=== PATIENT | male | born 1935 | race Hispanic/Latino ===

== ENCOUNTER 2022-05-15 12:18 | Inpatient (IN) | payer MEDICARE ==
[2022-05-15] MEDS ORDERED: FUROSEMIDE 40 MG/4 ML INJ IV ONE (13:16)
[2022-05-15] MEDS ORDERED: ASPIRIN 325 MG TAB PO ONE (13:17)
--- NOTE | 2022-05-15 13:21 | Emergency Department Report ---
HPI - General Chief Complaint: Pain General Time Seen by Provider: 05/15/22 12:48 - HPI HPI: Room 21 The patient is a 6-year-old male present with a chief complaint of diffuse body pain. Patient states for the past month he has had a poor appetite eating very little. Patient states he stopped taking his diuretics approximately 1 week ago and over the past few days he has had occasional shortness of breath. Patient states he is also noticed increased body swelling. Patient states he had an episode of chest pain this morning that lasted an unknown amount of time it was described as pressure-like in nature. Patient admits to nausea but denies vomiting, fever or cough. EMS was called and found the patient hypoxic to 93% on room air. The patient states he is not on home O2. ED Past Medical Hx - Past Medical History Previous Medical History?: Yes Hx Hypertension: Yes Hx Congestive Heart Failure: Yes Additional medical history: Ascites, vertigo - Surgical History Hx Coronary Stent: Yes (LAD) Additional Surgical History: AAA repair, vasectomy - Family History Family history: no significant - Social History Smoking Status: Former Smoker (None x35 years) Substance Use Type: None - Medications Home Medications: Home Medications Medication Instructions Recorded Confirmed Last Taken Type Aspirin EC [Ecotrin] 325 mg PO QDAY 04/28/22 04/28/22 Unknown History AtorvaSTATin 10 mg PO QDAY 04/28/22 04/28/22 Unknown History Ferrous Sulfate [Iron 325 MG] 325 mg PO QDAY 04/28/22 04/28/22 Unknown History Metoprolol [Lopressor TAB] 50 mg PO BID 04/28/22 04/28/22 Unknown History Multivitamin 1 each PO QDAY 04/28/22 04/28/22 Unknown History Omeprazole 20 mg PO QDAY 04/28/22 04/28/22 Unknown History Tamsulosin [Flomax] 0.4 mg PO QDAY 04/28/22 04/28/22 Unknown History lisinopriL [Lisinopril] 20 mg PO QDAY 04/28/22 04/28/22 Unknown History Furosemide [Lasix TAB] 40 mg PO QDAY 30 Days #30 tablet 04/30/22 Unknown Rx Spironolactone [Aldactone] 50 mg PO QDAY 30 Days #30 tablet 04/30/22 Unknown Rx ED Review of Systems ROS: Stated complaint: GENERAL SICKNESS/FULL BODY EDEMA Other details as noted in HPI Constitutional: weakness. denies: fever Eyes: denies: eye pain ENT: denies: throat pain Respiratory: shortness of breath. denies: cough Cardiovascular: chest pain Endocrine: no symptoms reported Gastrointestinal: abdominal pain, nausea. denies: vomiting Genitourinary: denies: dysuria Musculoskeletal: denies: back pain Neurological: denies: headache Physical Exam - Physical Exam Vital Signs: Vital Signs 05/15/22 05/15/22 12:28 12:46 Temperature 98.5 F Pulse Rate 110 H 101 H Respiratory 20 18 Rate Blood Pressure 112/57 125/45 [Left] O2 Sat by Pulse 95 96 Oximetry Physical Exam: GENERAL: The patient is well-developed well-nourished male lying on stretcher appearing fatigued but in no acute distress. [] HEENT: Normocephalic. Atraumatic. Extraocular motions are intact. Patient has moist mucous membranes. NECK: Supple. Trachea midline CHEST/LUNGS: Clear to auscultation. There is no respiratory distress noted. HEART/CARDIOVASCULAR: Regular. There is no tachycardia. There is no gallop rub or murmur. ABDOMEN: Abdomen is soft, nontender. Patient has normal bowel sounds. There is ascites present SKIN: There is no rash. There is 2+ bilateral lower extremity pitting edema. There is no diaphoresis. NEURO: The patient is awake, alert, and oriented. The patient is cooperative. The patient has no focal neurologic deficits. The patient has normal speech. GCS 15 MUSCULOSKELETAL: There is no evidence of acute injury. ED Course Vital Signs 05/15/22 05/15/22 12:28 12:46 Temperature 98.5 F Pulse Rate 110 H 101 H Respiratory 20 18 Rate Blood Pressure 112/57 125/45 [Left] O2 Sat by Pulse 95 96 Oximetry ED Medical Decision Making - Lab Data Result diagrams: 05/15/22 13:36 05/15/22 13:36 Laboratory Tests 05/15/22 05/15/22 05/15/22 13:36 13:36 13:36 WBC 15.6 H RBC 4.10 Hgb 14.4 Hct 43.9 MCV 107 H MCH 35 H MCHC 33 RDW 16.8 H Plt Count 127 L Baso % (Auto) Gas Operations Analyst WBC Morphology PT 17.5 H INR 1.28 H Sodium 131 L Potassium 4.3 Chloride 101.0 Carbon Dioxide 18 L Anion Gap 16 BUN 40 H Creatinine 1.5 H Estimated GFR 44 BUN/Creatinine Ratio 27 Glucose 106 H Calcium 9.4 Total Bilirubin 4.80 H AST 361 H ALT 112 H Alkaline Phosphatase 331 H Ammonia Total Creatine Kinase 1485 H CK-MB (CK-2) 10.5 H CK-MB (CK-2) Rel Index 0.7 Troponin T 0.059 H NT-Pro-B Natriuret Pep 428.2 Total Protein 6.4 Albumin 2.9 L Albumin/Globulin Ratio 0.8 05/15/22 05/15/22 13:36 13:36 WBC RBC Hgb Hct MCV MCH MCHC RDW Plt Count Baso % (Auto) WBC Morphology TNR PT INR Sodium Potassium Chloride Carbon Dioxide Anion Gap BUN Creatinine Estimated GFR BUN/Creatinine Ratio Glucose Calcium Total Bilirubin AST ALT Alkaline Phosphatase Ammonia 46.0 Total Creatine Kinase CK-MB (CK-2) CK-MB (CK-2) Rel Index Troponin T NT-Pro-B Natriuret Pep Total Protein Albumin Albumin/Globulin Ratio - Radiology Data Radiology results: report reviewed (Chest x-ray), image reviewed (Chest x-ray) interpreted by me: Chest x-ray-no definite focal infiltrates, no pneumothorax [facility] [address] [place] [address] XRay Report Signed Patient: AMBAR GUZMAN MR#: [id number] : 1935 Acct:[id number] Age/Sex: 86 / M ADM Date: 05/15/22 Loc: ED Attending Dr: Ordering Physician: DELIA TURCIOS MD Date of Service: 05/15/22 Procedure(s): XR chest 1V ap Accession Number(s): [id number] cc: DELIA TURCIOS MD Fluoro Time In Minutes: CHEST 1 VIEW 05/15/2022 1:44 PM INDICATION / CLINICAL INFORMATION: Shortness of breath and chest pain. COMPARISON: 04/27/22. FINDINGS: SUPPORT DEVICES: None. HEART / MEDIASTINUM: The heart size and pulmonary vasculature are normal. The aorta is normal in caliber. LUNGS / PLEURA: There is minimal scarring in the left lung base. No new pulmonary or pleural abnormality. No pneumothorax. ADDITIONAL FINDINGS: No significant additional findings. IMPRESSION: No acute abnormality or significant change. Signer Name: Omar Hanson MD Signed: 05/15/2022 1:57 PM Workstation Name: [id number] Transcribed By: RT Dictated By: Omar Hanson MD Electronically Authenticated By: Omar Hanson MD Signed Date/Time: 05/15/221356 DD/ 55 TD/TT: - Differential Diagnosis Volume overload, anasarca, CHF exacerbation, ACS, pericarditis Critical care attestation.: If time is entered above; I have spent that time in minutes in the direct care of this critically ill patient, excluding procedure time. ED Disposition Clinical Impression: CHF exacerbation, Chest pain, Peripheral edema, Rhabdomyolysis, Ascites, Cirrh osis Disposition: ADMITTED INPATIENT Is pt being admited?: Yes Does the pt Need Aspirin: Yes Condition: Stable Instructions: Nonspecific Chest Pain, Adult Time of Disposition: 15:57 (Care transferred to hospitalist (Dr. Garcia)) Heart Score - HEART Score History: Moderately suspicious EKG: Non-specific Age: > 65 Risk factors: 1-2 risk factors Troponin: 1-3x normal limit HEART Score: 6 - EKG Read Time Time EKG Completed: 13:37 EKG Read Time: 13:40
--- NOTE | 2022-05-15 14:01 | XRay Report ---
CHEST 1 VIEW 05/15/2022 1:44 PM INDICATION / CLINICAL INFORMATION: Shortness of breath and chest pain. COMPARISON: 04/27/22. FINDINGS: SUPPORT DEVICES: None. HEART / MEDIASTINUM: The heart size and pulmonary vasculature are normal. The aorta is normal in grey mic. LUNGS / PLEURA: There is minimal scarring in the left lung base. No new pulmonary or pleural abnormal ity. No pneumothorax. ADDITIONAL FINDINGS: No significant additional findings. IMPRESSION: No acute abnormality or significant change. Signer Name: Omar Hanson MD Signed: 05/15/2022 1:57 PM Workstation Name: [id number]
[2022-05-15 14:02] LABS: INR 1.28 (0.87-1.13)
[2022-05-15 14:11] LABS: Hematocrit 43.9 % (35.5-45.6); Hemoglobin 14.4 gm/dl (11.8-15.2); Mean Corpuscular HGB Conc 33 % (32-34); Mean Corpuscular Volume 107 fl (84-94); Platelet Count 127 K/mm3 (140-440); Red Cell Distribution Width 16.8 % (13.2-15.2)
[2022-05-15 15:19] LABS: Creatine Kinase MB 10.5 ng/mL (0.0-4.0)
[2022-05-15 15:24] LABS: Albumin 2.9 g/dL (3.9-5); Calcium 9.4 mg/dL (8.4-10.2)
--- NOTE | 2022-05-15 16:03 | History and Physical Report ---
History of Present Illness Chief complaint: My stomach is really tired and I cannot breathe History of present illness: 86 YO Male with Vascular Dementia, Cerebral Atherosclerosis, Obesity, Cirrhosis complicated by Ascites, Diastolic CHF, CAD S/P Stent Placement presents to ED for evaluation. The patient states "my stomach feels tight and I cannot breathe". Patient states he has experienced shortness of breath, and worsening abdominal distention over the past week with worsening symptoms over the past 2 days. EMS was notified and upon arrival the patient was found to be in distress and subsequent transported to [facility] for further care and evaluation of the aforementioned symptoms. The patient was seen and evaluated in the emergency department. All lab and imaging studies reviewed. Patient was found to have a pulse oximetry of 89% on room air which is consistent with acute hypoxemic respiratory failure. The patient was also found to have large volume tense ascites secondary to cirrhosis, metabolic acidosis, hyponatremia, systemic plantar response syndrome, and acute kidney injury. Patient placed on supplemental oxygen with improvement in symptoms. Patient admitted to medical floor due to increased risk of worsening symptoms and for medical stabilization. Patient has fever, chills, chest pain, palpitation, productive cough, skin rash and recent contact, known exposure to COVID-19. Prior mission on 04/27/2022 reviewed. All medication listed at time of admission have been reconciled. Advanced care planning conducted in ED. Past History Past Medical History: CAD, heart failure, other (See HPI) Past Surgical History: abd. aortic aneurysm repair, Other (Cardiac stent placement) Social history: , Lives alone. denies: smoking, alcohol abuse, prescription drug abuse Family history: hypertension Medications and Allergies Allergies Allergy/AdvReac Type Severity Reaction Status Date / Time clopidogrel bisulfate AdvReac Intermediate RASH,EXCESS Verified 05/15/22 12:34 [From Plavix] BRUISING Home Medications Medication Instructions Recorded Confirmed Last Taken Type Aspirin EC [Ecotrin] 325 mg PO QDAY 04/28/22 04/28/22 Unknown History AtorvaSTATin 10 mg PO QDAY 04/28/22 04/28/22 Unknown History Ferrous Sulfate [Iron 325 MG] 325 mg PO QDAY 04/28/22 04/28/22 Unknown History Metoprolol [Lopressor TAB] 50 mg PO BID 04/28/22 04/28/22 Unknown History Multivitamin 1 each PO QDAY 04/28/22 04/28/22 Unknown History Omeprazole 20 mg PO QDAY 04/28/22 04/28/22 Unknown History Tamsulosin [Flomax] 0.4 mg PO QDAY 04/28/22 04/28/22 Unknown History lisinopriL [Lisinopril] 20 mg PO QDAY 04/28/22 04/28/22 Unknown History Furosemide [Lasix TAB] 40 mg PO QDAY 30 Days #30 tablet 04/30/22 Unknown Rx Spironolactone [Aldactone] 50 mg PO QDAY 30 Days #30 tablet 04/30/22 Unknown Rx Review of Systems Constitutional: no weight loss, no weight gain Ears, nose, mouth and throat: no ear discharge, no tinnitis, no decreased hearing Cardiovascular: shortness of breath, no chest pain, no palpitations, no rapid/irregular heart beat, no edema Respiratory: no cough, no excessive sputum, no shortness of breath Gastrointestinal: other (Abdominal distention), no abdominal pain, no nausea, no vomiting, no diarrhea Genitourinary Male: no hematuria, no flank pain, no discharge, no urinary frequency Rectal: no pain, no incontinence Musculoskeletal: no neck pain, no shooting arm pain, no arm numbness/tingling Integumentary: no rash, no redness, no jaundice Neurological: no head injury, no weakness, no parathesias, no tingling, no seizures, no syncope, no tremors, no lack of coordination Psychiatric: no anxiety, no memory loss, no sleep disturbances, no hypersomnia, no change in appetite, no suicidal ideation Endocrine: no cold intolerance, no heat intolerance, no polydipsia, no nocturia, no excessive sweating, no weight change Hematologic/Lymphatic: no easy bleeding, no lymphedema Allergic/Immunologic: no allergic rhinitis, no wheezing, no anaphylaxis Exam - Constitutional Vitals: Temp Pulse Resp BP Pulse Ox 98.5 F 101 H 18 125/45 96 05/15/22 12:28 05/15/22 12:46 05/15/22 12:46 05/15/22 12:46 05/15/22 12:46 General appearance: Present: mild distress - EENT Eyes: Present: PERRL ENT: hearing intact, clear oral mucosa - Neck Neck: Present: supple, normal ROM - Respiratory Respiratory effort: labored Respiratory: left: diminished, rhonchi - Cardiovascular Heart Sounds: Present: S1 & S2. Absent: rub, click - Extremities Extremity abnormal: edema Peripheral Pulses: within normal limits - Abdominal General gastrointestinal: Present: soft, non-tender, distended, hernia Male genitourinary: Present: normal - Integumentary Integumentary: Present: clear, dry - Musculoskeletal Musculoskeletal: generalized weakness - Psychiatric Psychiatric: appropriate mood/affect, cooperative - Neurologic Neurologic: CNII-XII intact, moves all extremities HEART Score - HEART Score EKG: Non-specific Age: > 65 Risk factors: 1-2 risk factors Troponin: Troponin T 0.059 ng/mL (0.00-0.029) H 05/15/22 13:36 Troponin: 1-3x normal limit Results - Labs CBC & Chem 7: 05/15/22 13:36 05/15/22 13:36 Labs: Abnormal lab results 05/15/22 05/15/22 05/15/22 Range/Units 13:36 13:36 13:36 WBC 15.6 H (4.5-11.0) K/mm3 MCV 107 H (84-94) fl MCH 35 H (28-32) pg RDW 16.8 H (13.2-15.2) % Plt Count 127 L (140-440) K/mm3 PT 17.5 H (12.2-14.9) Sec. INR 1.28 H (0.87-1.13) Sodium 131 L (137-145) mmol/L Carbon Dioxide 18 L (22-30) mmol/L BUN 40 H (9-20) mg/dL Creatinine 1.5 H (0.8-1.3) mg/dL Glucose 106 H (75-100) mg/dL Total Bilirubin 4.80 H (0.1-1.2) mg/dL AST 361 H (5-40) units/L ALT 112 H (7-56) units/L Alkaline Phosphatase 331 H (35-129) units/L Total Creatine Kinase 1485 H (55-170) units/L CK-MB (CK-2) 10.5 H (0.0-4.0) ng/mL Troponin T 0.059 H (0.00-0.029) ng/mL Albumin 2.9 L (3.9-5) g/dL Assessment and Plan - Patient Problems (1) Acute hypoxemic respiratory failure Current Visit: Yes Status: Acute Plan to address problem: Chest x-ray, supplemental oxygen, pulse oximetry, nebulizer therapy, will consider noninvasive positive pressure ventilation as clinically indicated. (2) Cirrhosis of liver with ascites Current Visit: Yes Status: Acute Qualifiers: Hepatic cirrhosis type: unspecified hepatic cirrhosis Qualified Code(s): K74.60 - Unspecified cirrhosis of liver; R18.8 - Other ascites Plan to address problem: Diuresis, supportive care, therapeutic paracentesis conducted in the emergency department, empiric IV antibiotic therapy for SBP prophylaxis (3) SIRS (systemic inflammatory response syndrome) Current Visit: Yes Status: Acute Plan to address problem: CBC, chest x-ray, urinalysis, IV antibiotic therapy, repeat CBC in a.m. (4) Metabolic acidosis Current Visit: Yes Status: Acute Plan to address problem: IV fluid resuscitation therapy, IV bicarbonate therapy, repeat BMP in a.m. (5) Hyponatremia Current Visit: Yes Status: Acute Plan to address problem: IV fluid resuscitation therapy as clinically indicated, BMP, repeat BMP in a.m. (6) Acute kidney injury (GIOVANNA) with acute tubular necrosis (ATN) Current Visit: Yes Status: Acute Plan to address problem: IV fluid resuscitation therapy as clinically indicated, monitor urine output every shift, monitor fluid balance, repeat BMP in a.m. to monitor serum creatinine as well as GFR. (7) Vascular dementia Current Visit: Yes Status: Acute Qualifiers: Dementia behavioral disturbance: without behavioral disturbance Qualified Code(s): F01.50 - Vascular dementia without behavioral disturbance Plan to address problem: Verbal prompting, verbal redirection, benzodiazepine therapy as clinically indicated. (8) Cerebral atherosclerosis Current Visit: Yes Status: Acute Plan to address problem: Risk factor reduction, supportive care. (9) DVT prophylaxis Current Visit: Yes Status: Acute Plan to address problem: SCD to bilateral lower extremities while in bed (10) Advance care planning Current Visit: Yes Status: Acute Plan to address problem: Disease education done, care plan discussed, diagnosis discussed, prognosis discussed, patient is full code. Patient knowledges understanding agreement with care plan, +30 minutes. (11) Preventative health care Current Visit: Yes Status: Acute Plan to address problem: Patient counseled regarding medication compliance, dietary compliance, outpatient follow-up with primary care physician for all age and risk factor appropriate screening test. +30 minutes.
[2022-05-15 16:09] LABS: Chol/HDL Ratio 7.73 %
[2022-05-15] MEDS ORDERED: HYDROmorphone 0.5 MG/0.5 ML INJ IV PRN (16:37)
[2022-05-15] MEDS ORDERED: ONDANSETRON 4 MG/2 ML INJ IV PRN (16:37)
[2022-05-15] MEDS ORDERED: oxyCODONE /ACETAMINOPHEN 5-325MG TAB PO PRN (16:37)
[2022-05-15] MEDS ORDERED: ALBUTEROL 2.5 MG/3 ML NEBU IH PRN (16:37)
[2022-05-15] MEDS ORDERED: ACETAMINOPHEN 325 MG TAB PO PRN (16:37)
[2022-05-15 16:42] LABS: Basophils % (Manual) 0 % (0.0-1.8); Eosinophils % (Manual) 0 % (0.0-4.3); Total Cells Counted 100
[2022-05-15 16:43] LABS: Platelet Estimate Consistent w Auto; Target Cells Few
[2022-05-15] MEDS ORDERED: SODIUM BICARB 8.4% 50 MEQ/50 ML SYRINGE IV ONE (17:40)
--- NOTE | 2022-05-15 17:53 | Procedure Note ---
Date of procedure: 05/15/22 Pre-op diagnosis: Cirrhosis complicated by ascites Post-op diagnosis: same Procedure: Ultrasound-guided paracentesis The patient was prepped and draped in the usual sterile fashion. A timeout was taken with the patient's nurse at bedside to identify the correct patient, the correct procedure, and correct operative site. Ultrasound was utilized to assist ascitic fluid location. Local anesthesia obtained with 1% lidocaine. Disease technique was utilized under ultrasound guidance to insert a paracentesis catheter into the abdominal cavity without difficulty. The seeker needle was subsequently removed. A 50 cc syringe was attached to the vacuum tu yoshi and 5.5 L of serous fluid was removed and 50 cc increments. The paracentesis drain was removed and a bandage placed over the insertion site. Estimated blood loss minimal, complications none, specimens none. Anesthesia: local Surgeon: MARIYA DOE Estimated blood loss: minimal Pathology: none Condition: stable Disposition: floor
[2022-05-15] MEDS: METOPROLOL TARTRATE 50 MG TAB PO SCH (21:55)
--- NOTE | 2022-05-16 08:34 | Progress Note ---
Assessment and Plan Assessment and plan: (1) Acute hypoxemic respiratory failure Current Visit: Yes Status: Acute Plan to address problem: Chest x-ray, supplemental oxygen, pulse oximetry, nebulizer therapy, will consider noninvasive positive pressure ventilation as clinically indicated. 05/16 -Patient was off oxygen, no shortness of breath (2) Cirrhosis of liver with ascites Current Visit: Yes Status: Acute Qualifiers: Hepatic cirrhosis type: unspecified hepatic cirrhosis Qualified Code(s): K74.60 - Unspecified cirrhosis of liver; R18.8 - Other ascites Plan to address problem: Diuresis, supportive care, therapeutic paracentesis conducted in the emergency department, empiric IV antibiotic therapy for SBP prophylaxis 05/16 -Patient's abdominal pain is getting better. -Tolerated paracentesis well. -Patient is scheduled to see GI as an outpatient but he was scheduled to see in july. (3) SIRS (systemic inflammatory response syndrome) Current Visit: Yes Status: Acute Plan to address problem: CBC, chest x-ray, urinalysis, IV antibiotic therapy, repeat CBC in a.m. (4) Metabolic acidosis Current Visit: Yes Status: Acute Plan to address problem: IV fluid resuscitation therapy, IV bicarbonate therapy, repeat BMP in a.m. (5) Hyponatremia Current Visit: Yes Status: Acute Plan to address problem: IV fluid resuscitation therapy as clinically indicated, BMP, repeat BMP in a.m. (6) Acute kidney injury (GIOVANNA) with acute tubular necrosis (ATN) Current Visit: Yes Status: Acute Plan to address problem: IV fluid resuscitation therapy as clinically indicated, monitor urine output every shift, monitor fluid balance, repeat BMP in a.m. to monitor serum creatinine as well as GFR. (7) Vascular dementia Current Visit: Yes Status: Acute Qualifiers: Dementia behavioral disturbance: without behavioral disturbance Qualified Code(s): F01.50 - Vascular dementia without behavioral disturbance Plan to address problem: Verbal prompting, verbal redirection, benzodiazepine therapy as clinically indicated. (8) Cerebral atherosclerosis Current Visit: Yes Status: Acute Plan to address problem: Risk factor reduction, supportive care. (9) DVT prophylaxis Current Visit: Yes Status: Acute Plan to address problem: SCD to bilateral lower extremities while in bed (10) Advance care planning Current Visit: Yes Status: Acute Plan to address problem: Disease education done, care plan discussed, diagnosis discussed, prognosis discussed, patient is full code. Patient knowledges understanding agreement with care plan, +30 minutes. (11) Preventative health care Current Visit: Yes Status: Acute Plan to address problem: Patient counseled regarding medication compliance, dietary compliance, outpatient follow-up with primary care physician for all age and risk factor appropriate screening test. +30 minutes. History Interval history: Patient was seen and evaluated this morning Patient did not have any complaints overnight Hospitalist Physical - Physical exam Narrative exam: Not in cardiopulmonary distress. The patient appeared well nourished and normally developed. Vital signs as documented. Head exam is unremarkable. No scleral icterus . Neck is without jugular venous distension, thyromegaly, or carotid bruits. Lungs are clear to auscultation. Cardiac exam reveals regular rate and Rhythm. Abdominal exam reveals normal bowel sounds, nontender, no organomegaly. Extremities are nonedematous and both femoral and pedal pulses are normal. PATTERN PAINTER: Alert and oriented 3. No focal weakness. - Constitutional Vitals: Temp Pulse Resp BP Pulse Ox 98.2 F 65 18 126/53 98 05/16/22 03:57 05/16/22 03:57 05/16/22 03:57 05/16/22 03:57 05/16/22 03:57 General appearance: Present: mild distress HEART Score - HEART Score EKG: Non-specific Age: > 65 Risk factors: 1-2 risk factors Troponin: Troponin T 0.059 ng/mL (0.00-0.029) H 05/15/22 13:36 Troponin: 1-3x normal limit Results - Labs CBC & Chem 7: 05/15/22 13:36 05/15/22 13:36 Labs: Laboratory Last Values WBC 15.6 K/mm3 (4.5-11.0) H 05/15/22 13:36 RBC 4.10 M/mm3 (3.65-5.03) 05/15/22 13:36 Hgb 14.4 gm/dl (11.8-15.2) 05/15/22 13:36 Hct 43.9 % (35.5-45.6) 05/15/22 13:36 MCV 107 fl (84-94) H 05/15/22 13:36 MCH 35 pg (28-32) H 05/15/22 13:36 MCHC 33 % (32-34) 05/15/22 13:36 RDW 16.8 % (13.2-15.2) H 05/15/22 13:36 Plt Count 127 K/mm3 (140-440) L 05/15/22 13:36 Baso % (Auto) Estimating Manager 05/15/22 13:36 Add Manual Diff Complete 05/15/22 13:36 Total Counted 100 05/15/22 13:36 Seg Neuts % (Manual) 85.0 % (40.0-70.0) H 05/15/22 13:36 Band Neutrophils % 0 % 05/15/22 13:36 Lymphocytes % (Manual) 3.0 % (13.4-35.0) L 05/15/22 13:36 Reactive Lymphs % (Man) 0 % 05/15/22 13:36 Monocytes % (Manual) 12.0 % (0.0-7.3) H 05/15/22 13:36 Eosinophils % (Manual) 0 % (0.0-4.3) 05/15/22 13:36 Basophils % (Manual) 0 % (0.0-1.8) 05/15/22 13:36 Metamyelocytes % 0 % 05/15/22 13:36 Myelocytes % 0 % 05/15/22 13:36 Promyelocytes % 0 % 05/15/22 13:36 Blast Cells % 0 % 05/15/22 13:36 Nucleated RBC % Not Reportable 05/15/22 13:36 Seg Neutrophils # Man 13.3 K/mm3 (1.8-7.7) H 05/15/22 13:36 Band Neutrophils # 0.0 K/mm3 05/15/22 13:36 Lymphocytes # (Manual) 0.5 K/mm3 (1.2-5.4) L 05/15/22 13:36 Abs React Lymphs (Man) 0.0 K/mm3 05/15/22 13:36 Monocytes # (Manual) 1.9 K/mm3 (0.0-0.8) H 05/15/22 13:36 Eosinophils # (Manual) 0.0 K/mm3 (0.0-0.4) 05/15/22 13:36 Basophils # (Manual) 0.0 K/mm3 (0.0-0.1) 05/15/22 13:36 Metamyelocytes # 0.0 K/mm3 05/15/22 13:36 Myelocytes # 0.0 K/mm3 05/15/22 13:36 Promyelocytes # 0.0 K/mm3 05/15/22 13:36 Blast Cells # 0.0 K/mm3 05/15/22 13:36 WBC Morphology Not Reportable 05/15/22 13:36 WBC Morphology TNR 05/15/22 13:36 Hypersegmented Neuts Not Reportable 05/15/22 13:36 Hyposegmented Neuts Not Reportable 05/15/22 13:36 Hypogranular Neuts Not Reportable 05/15/22 13:36 Smudge Cells Not Reportable 05/15/22 13:36 Toxic Granulation Not Reportable 05/15/22 13:36 Toxic Vacuolation Not Reportable 05/15/22 13:36 Dohle Bodies Not Reportable 05/15/22 13:36 Pelger-Huet Anomaly Not Reportable 05/15/22 13:36 Didier Rods Not Reportable 05/15/22 13:36 Platelet Estimate Consistent w auto 05/15/22 13:36 Clumped Platelets Not Reportable 05/15/22 13:36 Plt Clumps, EDTA Not Reportable 05/15/22 13:36 Large Platelets Not Reportable 05/15/22 13:36 Giant Platelets Not Reportable 05/15/22 13:36 Platelet Satelliting Not Reportable 05/15/22 13:36 Plt Morphology Comment Not Reportable 05/15/22 13:36 RBC Morphology Not Reportable 05/15/22 13:36 Dimorphic RBCs Not Reportable 05/15/22 13:36 Polychromasia Not Reportable 05/15/22 13:36 Hypochromasia Not Reportable 05/15/22 13:36 Poikilocytosis Not Reportable 05/15/22 13:36 Anisocytosis Not Reportable 05/15/22 13:36 Microcytosis Not Reportable 05/15/22 13:36 Macrocytosis Not Reportable 05/15/22 13:36 Spherocytes Not Reportable 05/15/22 13:36 Pappenheimer Bodies Not Reportable 05/15/22 13:36 Sickle Cells Not Reportable 05/15/22 13:36 Target Cells Few 05/15/22 13:36 Tear Drop Cells Not Reportable 05/15/22 13:36 Ovalocytes Not Reportable 05/15/22 13:36 Helmet Cells Not Reportable 05/15/22 13:36 Sidhu-Bret Harte Bodies Not Reportable 05/15/22 13:36 Troy Rings Not Reportable 05/15/22 13:36 Dasia Cells Not Reportable 05/15/22 13:36 Bite Cells Not Reportable 05/15/22 13:36 Crenated Cell Not Reportable 05/15/22 13:36 Elliptocytes Not Reportable 05/15/22 13:36 Acanthocytes (Spur) Not Reportable 05/15/22 13:36 Rouleaux Not Reportable 05/15/22 13:36 Hemoglobin C Crystals Not Reportable 05/15/22 13:36 Schistocytes Not Reportable 05/15/22 13:36 Malaria parasites Not Reportable 05/15/22 13:36 Venancio Bodies Not Reportable 05/15/22 13:36 Hem Pathologist Commnt No 05/15/22 13:36 PT 17.5 Sec. (12.2-14.9) H 05/15/22 13:36 INR 1.28 (0.87-1.13) H 05/15/22 13:36 Sodium 131 mmol/L (137-145) L 05/15/22 13:36 Potassium 4.3 mmol/L (3.6-5.0) 05/15/22 13:36 Chloride 101.0 mmol/L (98-107) 05/15/22 13:36 Carbon Dioxide 18 mmol/L (22-30) L 05/15/22 13:36 Anion Gap 16 mmol/L 05/15/22 13:36 BUN 40 mg/dL (9-20) H 05/15/22 13:36 Creatinine 1.5 mg/dL (0.8-1.3) H 05/15/22 13:36 Estimated GFR 44 ml/min 05/15/22 13:36 BUN/Creatinine Ratio 27 % 05/15/22 13:36 Glucose 106 mg/dL (75-100) H 05/15/22 13:36 Calcium 9.4 mg/dL (8.4-10.2) 05/15/22 13:36 Total Bilirubin 4.80 mg/dL (0.1-1.2) H 05/15/22 13:36 AST 361 units/L (5-40) H 05/15/22 13:36 ALT 112 units/L (7-56) H 05/15/22 13:36 Alkaline Phosphatase 331 units/L (35-129) H 05/15/22 13:36 Ammonia 46.0 umol/L (25-60) 05/15/22 13:36 Total Creatine Kinase 1485 units/L (55-170) H 05/15/22 13:36 CK-MB (CK-2) 10.5 ng/mL (0.0-4.0) H 05/15/22 13:36 CK-MB (CK-2) Rel Index 0.7 (0-4) 05/15/22 13:36 Troponin T 0.059 ng/mL (0.00-0.029) H 05/15/22 13:36 NT-Pro-B Natriuret Pep 428.2 pg/mL (0-900) 05/15/22 13:36 Total Protein 6.4 g/dL (6.3-8.2) 05/15/22 13:36 Albumin 2.9 g/dL (3.9-5) L 05/15/22 13:36 Albumin/Globulin Ratio 0.8 % 05/15/22 13:36 Triglycerides 99 mg/dL (2-149) 05/15/22 13:36 Cholesterol 147 mg/dL (50-199) 05/15/22 13:36 LDL Cholesterol Direct 100 mg/dL (50-130) 05/15/22 13:36 HDL Cholesterol 19 mg/dL (40-59) L 05/15/22 13:36 Cholesterol/HDL Ratio 7.73 % 05/15/22 13:36 Gambino/IV: Voiding Method Urinal Active Medications - Current Medications Current Medications: Generic Name Dose Route Start Last Admin Trade Name Freq PRN Reason Stop Dose Admin Acetaminophen 650 mg 05/15/22 16:37 Acetaminophen 325 Mg Tab PO Q4H PRN Pain MILD(1-3)/Fever >100.5/CONNORS Albuterol 2.5 mg 05/15/22 16:37 Albuterol 2.5 Mg/3 Ml Nebu IH Q4HRT PRN Shortness Of Breath Aspirin 325 mg 05/16/22 10:00 Aspirin Ec 325 Mg Tab PO QDAY [facility] Atorvastatin Calcium 10 mg 05/16/22 10:00 Atorvastatin 10 Mg Tab PO QDAY [facility] Ferrous Sulfate 325 mg 05/16/22 10:00 Ferrous Sulfate 325 Mg Tab PO QDAY [facility] Furosemide 20 mg 05/16/22 10:00 Furosemide 20 Mg/2 Ml Inj IV QDAY [facility] Hydromorphone HCl 0.5 mg 05/15/22 16:37 Hydromorphone 0.5 Mg/0.5 Ml Inj IV Q13H PRN Pain , Severe (7-10) Levofloxacin/Dextrose 250 mg in 50 mls @ 50 mls/hr 05/16/22 18:00 Levaquin 250mg/50ml IV Q24H [facility] Lisinopril 20 mg 05/16/22 10:00 Lisinopril 20 Mg Tab PO QDAY [facility] Metoprolol Tartrate 50 mg 05/15/22 22:00 05/15/22 21:55 Metoprolol Tartrate 50 Mg Tab PO 50 mg BID [facility] Administration Multivitamins 1 each 05/16/22 10:00 Multivitamins ,Therapeutic Tab PO DAILY [facility] Ondansetron HCl 4 mg 05/15/22 16:37 Ondansetron 4 Mg/2 Ml Inj IV Q8H PRN Nausea And Vomiting Oxycodone/Acetaminophen 1 tab 05/15/22 16:37 Oxycodone /Acetaminophen 5-325mg Tab PO Q6H PRN Pain, Moderate (4-6) Pantoprazole Sodium 20 mg 05/16/22 10:00 Pantoprazole 20 Mg Tab PO QDAY [facility] Sodium Chloride 10 ml 05/15/22 22:00 05/15/22 21:56 Sodium Chloride 0.9% 10 Ml Flush Syringe IV 10 ml BID [facility] Administration Sodium Chloride 10 ml 05/15/22 16:37 Sodium Chloride 0.9% 10 Ml Flush Syringe IV PRN PRN LINE FLUSH Spironolactone 50 mg 05/16/22 10:00 Spironolactone 50 Mg Tab PO QDAY [facility] Tamsulosin HCl 0.4 mg 05/16/22 10:00 Tamsulosin 0.4 Mg Cap PO QDAY [facility]
[2022-05-16] MEDS: FUROSEMIDE 20 MG/2 ML INJ IV SCH (09:45)
[2022-05-16] MEDS: METOPROLOL TARTRATE 50 MG TAB PO SCH (09:45)
[2022-05-16] MEDS: ASPIRIN EC 325 MG TAB PO SCH (09:45)
[2022-05-16] MEDS: MULTIVITAMINS ,THERAPEUTIC TAB PO SCH (09:46)
[2022-05-16] MEDS: PANTOPRAZOLE 20 MG TAB PO SCH (09:46)
[2022-05-16] MEDS: LISINOPRIL 20 MG TAB PO SCH (09:48)
[2022-05-16] MEDS: SPIRONOLACTONE 50 MG TAB PO SCH (09:48)
[2022-05-16] MEDS: FERROUS SULFATE 325 MG TAB PO SCH (09:48)
[2022-05-16] MEDS: TAMSULOSIN 0.4 MG CAP PO SCH (09:49)
[2022-05-16] MEDS ORDERED: NON-FORMULARY EACH (Multivitamin [Multivitamin] 1 EACH Tablet) PO SCH (10:00)
[2022-05-16] MEDS ORDERED: NON-FORMULARY EACH (Omeprazole [Omeprazole] 20 MG Capsule.Dr) PO SCH (10:00)
[2022-05-16] MEDS ORDERED: ZOLPIDEM 5 MG TAB PO PRN (10:37)
[2022-05-16 14:07] LABS: Bilirubin,Urine NEG (Negative); Blood,Urine MOD (Negative); Color,Urine Yellow (Yellow); Protein,Urine <15 mg/dL mg/dL (Negative)
[2022-05-16 14:08] LABS: Mucus,Urine FEW /HPF; RBC,Urine < 1.0 /HPF (0.0-6.0)
[2022-05-17] MEDS: METOPROLOL TARTRATE 50 MG TAB PO SCH ×2 (00:22→09:31)
[2022-05-17 03:47] VITALS: BP 128/52
[2022-05-17 07:57] LABS: Hematocrit 39.6 % (35.5-45.6); Hemoglobin 13.3 gm/dl (11.8-15.2); Mean Corpuscular HGB Conc 34 % (32-34); Mean Corpuscular Volume 106 fl (84-94); Platelet Count 101 K/mm3 (140-440); Red Blood Count 3.73 M/mm3 (3.65-5.03); Red Cell Distribution Width 16.4 % (13.2-15.2)
[2022-05-17 08:11] LABS: Albumin 2.7 g/dL (3.9-5); Calcium 9.1 mg/dL (8.4-10.2)
[2022-05-17 09:20] LABS: Basophils % (Manual) 0 % (0.0-1.8); Eosinophils % (Manual) 0 % (0.0-4.3); Total Cells Counted 100
[2022-05-17 09:23] LABS: Burr Cells Rare; Poikilocytosis Few; Target Cells Rare
[2022-05-17 09:24] LABS: Large Platelets Rare; Platelet Estimate Consistent w Auto; Schistocytes Rare
[2022-05-17] MEDS: FERROUS SULFATE 325 MG TAB PO SCH (09:30)
[2022-05-17] MEDS: PANTOPRAZOLE 20 MG TAB PO SCH (09:30)
[2022-05-17] MEDS: ASPIRIN EC 325 MG TAB PO SCH (09:30)
[2022-05-17] MEDS: FUROSEMIDE 20 MG/2 ML INJ IV SCH (09:31)
[2022-05-17] MEDS: TAMSULOSIN 0.4 MG CAP PO SCH (09:31)
[2022-05-17] MEDS: LISINOPRIL 20 MG TAB PO SCH (09:31)
[2022-05-17] MEDS: MULTIVITAMINS ,THERAPEUTIC TAB PO SCH (09:31)
[2022-05-17] MEDS: SPIRONOLACTONE 50 MG TAB PO SCH (09:31)
--- NOTE | 2022-05-17 10:00 | Electrocardiograph Report ---
[facility] Test Date: 2022-05-15 Test Time: 13:37:45 Pat Name: AMBAR GUZMAN Department: Room: A477 1 Gender: M Sexton Helper: ABELARDO : 1935 Requested By: DELIA TURCIOS Order Number: [id number] Reading MD: Sushant Sutton Measurements Intervals Gordon Rate: 91 P: 47 MD: 193 QRS: 95 QRSD: 84 T: -22 QT: 326 QTc: 402 Interpretive Statements Sinus rhythm Right axis deviation Low voltage, extremity and precordial leads Compared to ECG 04/27/2022 17:50:11 Right-axis deviation now present Electronically Signed On 05-17-2022 9:59:55 EDT by Sushant Sutton
--- NOTE | 2022-05-17 10:45 | Discharge Summary ---
Providers - Providers Date of Admission: 05/15/22 17:49 Date of discharge: 05/17/22 Attending physician: TAURUS ROSARIO MD 05/16/22 10:28 Occupational Therapy Evaluate and Treat [CONS] Routine Comment: OT eval and treat Reason For Exam: debility Physical Therapy Evaluation and Treat [CONS] Routine Comment: Pt eval and treat Reason For Exam: debility Primary care physician: LEANDRO MCGRATH Hospitalization Reason for admission: Acute hypoxic respiratory failure, hyponatremia, GIOVANNA Condition: Stable Pertinent studies: Reviewed. Procedures: Ultrasound-guided paracentesis Hospital course: The patient is a 86 YO Male with Vascular Dementia, Cerebral Atherosclerosis, Obesity, Cirrhosis complicated by Ascites, Diastolic CHF, CAD S/P Stent Placement presents to ED for evaluation. The patient states "my stomach feels tight and I cannot breathe". Patient states he has experienced shortness of breath, and worsening abdominal distention over the past week with worsening symptoms over the past 2 days. EMS was notified and upon arrival the patient was found to be in distress and subsequent transported to [facility] for further care and evaluation of the aforementioned symptoms. The patient was seen and evaluated in the emergency department. All lab and imaging studies reviewed. Patient was found to have a pulse oximetry of 89% on room air which is consistent with acute hypoxemic respiratory failure. The patient was also found to have large volume tense ascites secondary to cirrhosis, metabolic acidosis, hyponatremia, systemic plantar response syndrome, and acute kidney injury. Patient placed on supplemental oxygen with improvement in symptoms. Patient admitted to medical floor due to increased risk of worsening symptoms and for medical stabilization. The patient underwent ultrasound-guided paracentesis with removal of 5.5 L of serous fluid, and the patient tolerated the procedure well without any complications. Patient has since been weaned to room air. Patient is already scheduled to follow-up with gastroenterology in outpatient setting (July 2022). The patient will continue p.o. ciprofloxacin 500 mg daily for a 7-day course for SBP prophylaxis. Patient is medically clear for discharge. Disposition: 01 HOME / SELF CARE / HOMELESS Final Discharge Diagnosis (Prints w/discharge instructions): Acute hypoxic respiratory failure, decompensated alcohol cirrhosis with ascites, SIRS, metabolic acidosis, hyponatremia, GIOVANNA, vascular dementia, cerebral atherosclerosis, obesity, elevated transaminases, hyperbilirubinemia, moderate protein caloric malnutrition Time spent for discharge: 45 min Core Measure Documentation - Palliative Care Palliative Care/ Comfort Measures: Not Applicable - Core Measures Any of the following diagnoses?: none Exam - Constitutional Vitals: Temp Pulse Resp BP Pulse Ox 97.3 F L 50 L 18 128/52 96 05/17/22 03:44 05/17/22 03:44 05/17/22 03:44 05/17/22 03:44 05/17/22 09:04 General appearance: Present: no acute distress, obese - EENT Eyes: Present: PERRL, EOM intact ENT: hearing intact, clear oral mucosa, dentition normal - Neck Neck: Present: supple, normal ROM - Respiratory Respiratory effort: normal Respiratory: bilateral: CTA - Cardiovascular Rhythm: regular Heart Sounds: Present: S1 & S2 - Extremities Extremities: no ischemia, pulses intact, pulses symmetrical, normal temperature, normal color Extremity abnormal: edema (1+ pitting edema bilateral lower extremities) Peripheral Pulses: within normal limits - Abdominal General gastrointestinal: Present: soft, non-tender, distended (Moderate ascites), normal bowel sounds Male genitourinary: Present: deferred - Rectal Rectal Exam: deferred - Integumentary Integumentary: Present: clear, warm, dry - Musculoskeletal Musculoskeletal: strength equal bilaterally - Psychiatric Psychiatric: appropriate mood/affect, intact judgment & insight, memory intact, cooperative - Neurologic Neurologic: CNII-XII intact, moves all extremities - Allied Health Allied health notes reviewed: nursing Plan Activity: advance as tolerated Diet: regular Special Instructions: restrict fluid intake to (2 L/day) Additional Instructions: The patient is a 86 YO Male with Vascular Dementia, Cerebral Atherosclerosis, Obesity, Cirrhosis complicated by Ascites, Diastolic CHF, CAD S/P Stent Placement presents to ED for evaluation. The patient states "my stomach feels tight and I cannot breathe". Patient states he has experienced shortness of breath, and worsening abdominal distention over the past week with worsening symptoms over the past 2 days. EMS was notified and upon arrival the patient was found to be in distress and subsequent transported to [facility] for further care and evaluation of the aforementioned symptoms. The patient was seen and evaluated in the emergency department. All lab and imaging studies reviewed. Patient was found to have a pulse oximetry of 89% on room air which is consistent with acute hypoxemic respiratory failure. The patient was also found to have large volume tense ascites secondary to cirrhosis, metabolic acidosis, hyponatremia, systemic plantar response syndrome, and acute kidney injury. Patient placed on supplemental oxygen with improvement in symptoms. Patient admitted to medical floor due to increased risk of worsening symptoms and for medical stabilization. The patient underwent ultrasound-guided paracentesis with removal of 5.5 L of serous fluid, and the patient tolerated the procedure well without any complications. Patient has since been weaned to room air. Patient is already scheduled to follow-up with gastroenterology in outpatient setting (July 2022). The patient will continue p.o. ciprofloxacin 500 mg daily for a 7-day course for SBP prophylaxis. Patient is medically clear for discharge. Care Plan Goals: Patient is medically clear for discharge. Assessment: The patient is a 86 YO Male with Vascular Dementia, Cerebral Atherosclerosis, Obesity, Cirrhosis complicated by Ascites, Diastolic CHF, CAD S/P Stent Placement presents to ED for evaluation. The patient states "my stomach feels tight and I cannot breathe". Patient states he has experienced shortness of breath, and worsening abdominal distention over the past week with worsening symptoms over the past 2 days. EMS was notified and upon arrival the patient was found to be in distress and subsequent transported to [facility] for further care and evaluation of the aforementioned symptoms. The patient was seen and evaluated in the emergency department. All lab and imaging studies reviewed. Patient was found to have a pulse oximetry of 89% on room air which is consistent with acute hypoxemic respiratory failure. The patient was also found to have large volume tense ascites secondary to cirrhosis, metabolic acidosis, hyponatremia, systemic plantar response syndrome, and acute kidney injury. Patient placed on supplemental oxygen with improvement in symptoms. Patient admitted to medical floor due to increased risk of worsening symptoms and for medical stabilization. The patient underwent ultrasound-guided paracentesis with removal of 5.5 L of serous fluid, and the patient tolerated the procedure well without any complications. Patient has since been weaned to room air. Patient is already scheduled to follow-up with gastroenterology in outpatient setting (July 2022). The patient will continue p.o. ciprofloxacin 500 mg daily for a 7-day course for SBP prophylaxis. Patient is medically clear for discharge. Follow up with: LEANDRO MCGRATH MD [Primary Care Provider] - 7 Days Prescriptions: Spironolactone [Aldactone] 50 mg PO QDAY 30 Days #30 tablet AtorvaSTATin 10 mg PO QDAY #30 tab Tamsulosin [Flomax] 0.4 mg PO QDAY #30 cap Ferrous Sulfate [Iron 325 MG] 325 mg PO QDAY #30 tab Furosemide [Lasix TAB] 40 mg PO QDAY 30 Days #30 tablet lisinopriL [Lisinopril] 20 mg PO QDAY #30 tab Metoprolol [Lopressor TAB] 50 mg PO BID #60 tab Multivitamin 1 each PO QDAY #30 tab Omeprazole 20 mg PO QDAY #30 tab
== END 2022-05-17 17:55 | disposition home health service (06) | DRG 432 ==
LOC: ED 12:18 → 4A 17:49
PROVIDERS: ADMIT Internal Medicine; ATTEND Student in an Organized Health Care Education/Training Program
PROC: 0W9G3ZZ Drainage of Peritoneal Cavity, Percutaneous Approach (ICD-10-PCS; principal; 2022-05-15)
DX: K70.31 Alcoholic cirrhosis of liver with ascites (principal); N17.0 Acute kidney failure with tubular necrosis; J96.01 Acute respiratory failure with hypoxia; E87.2 Acidosis; R65.10 Systemic inflammatory response syndrome (SIRS) of non-infectious origin without acute organ dysfunction; E87.1 Hypo-osmolality and hyponatremia; M62.82 Rhabdomyolysis; I50.30 Unspecified diastolic (congestive) heart failure; E44.0 Moderate protein-calorie malnutrition; F01.50 Vascular dementia, unspecified severity, without behavioral disturbance, psychotic disturbance, mood disturbance, and anxiety; I11.0 Hypertensive heart disease with heart failure; I67.2 Cerebral atherosclerosis; E66.9 Obesity, unspecified; Z68.30 Body mass index [BMI] 30.0-30.9, adult; I25.10 Atherosclerotic heart disease of native coronary artery without angina pectoris; Z82.49 Family history of ischemic heart disease and other diseases of the circulatory system; Z79.82 Long term (current) use of aspirin; Z88.8 Allergy status to other drugs, medicaments and biological substances; Z79.899 Other long term (current) drug therapy; Z87.891 Personal history of nicotine dependence
CPT/HCPCS: 36415; 71045; 80053; 80061; 81001; 82140; 82550; 82553; 83880; 84484; 85007; 85025; 85610; 93005; G0378; J1940; J1956